=== PATIENT | female | born 1955 | race Caucasian/White ===

== ENCOUNTER → 2020-03-28 10:39 | Outpatient (CLI) | payer OTHER, SELFPAY ==
--- NOTE | 2020-03-28 10:42 | DI.RAD.S_ITS ---
PROCEDURE: XR LUMBAR SPINE MIN 4V INDICATIONS: lumbar radiculopathy TECHNIQUE: 5 total views of the lumbar spine were acquired, including bilateral oblique views. COMPARISON: None. FINDINGS: Bones: There is minimal levoconvex lumbar scoliotic curvature seen. Minimal retrolisthesis is seen at the L1-2 level. There is mild grade 1 anterolisthesis seen at the L5-S1 level. Mild loss of disc height is seen at L5-S1. 5 nonrib-bearing, lumbar type vertebral bodies are seen. No displaced fractures are seen. No suspicious lytic or blastic lesions are seen. Lower lumbar spine facet arthropathy is seen. Soft tissues: Overlying bowel gas pattern is normal. No suspicious soft tissue calcifications. Atherosclerotic calcification is noted. Oblique images: No pars defects. IMPRESSION: Focal L5-S1 degenerative change is seen. No pars defects are seen. Dictated by: Aidan Reyes M.D. on 03/28/2020 at 10:01 Approved by: Aidan Reyes M.D. on 03/28/2020 at 10:03
== END ==
PROVIDERS: PCP Family Medicine; Referring Provider Physical Medicine & Rehabilitation; Visit Provider Physical Medicine & Rehabilitation
DX: M47.27 Other spondylosis with radiculopathy, lumbosacral region (principal)
CPT/HCPCS: 72110